=== PATIENT | female | born 1955 ===

== ENCOUNTER 2018-11-25 11:45 | Outpatient (CLI) | payer BC | END 2018-11-25 12:25 | disposition home or self-care (01) | LOC: LAB 11:45 | DX: N39.0 Urinary tract infection, site not specified (principal); E55.9 Vitamin D deficiency, unspecified; Z13.89 Encounter for screening for other disorder; K77 Liver disorders in diseases classified elsewhere; Z13.29 Encounter for screening for other suspected endocrine disorder; E03.8 Other specified hypothyroidism; E78.2 Mixed hyperlipidemia; N08 Glomerular disorders in diseases classified elsewhere; Z13.1 Encounter for screening for diabetes mellitus; E11.65 Type 2 diabetes mellitus with hyperglycemia; Z12.11 Encounter for screening for malignant neoplasm of colon; B96.89 Other specified bacterial agents as the cause of diseases classified elsewhere; D63.8 Anemia in other chronic diseases classified elsewhere ==

== ENCOUNTER 2018-11-30 09:42 | Outpatient (CLI) | payer BC | END 2018-11-30 10:00 | disposition home or self-care (01) | LOC: LAB 09:42 | DX: N39.0 Urinary tract infection, site not specified (principal); D63.8 Anemia in other chronic diseases classified elsewhere; Z13.89 Encounter for screening for other disorder; E55.9 Vitamin D deficiency, unspecified; K77 Liver disorders in diseases classified elsewhere; Z13.29 Encounter for screening for other suspected endocrine disorder; E03.8 Other specified hypothyroidism; N08 Glomerular disorders in diseases classified elsewhere; E11.65 Type 2 diabetes mellitus with hyperglycemia; Z12.11 Encounter for screening for malignant neoplasm of colon ==

== ENCOUNTER 2019-01-04 13:09 | Outpatient (CLI) | payer BC | END 2019-01-04 13:57 | disposition home or self-care (01) | LOC: LAB 13:09 | DX: N39.0 Urinary tract infection, site not specified (principal); M19.90 Unspecified osteoarthritis, unspecified site; R10.13 Epigastric pain; K21.9 Gastro-esophageal reflux disease without esophagitis; Z12.11 Encounter for screening for malignant neoplasm of colon; R74.0 Nonspecific elevation of levels of transaminase and lactic acid dehydrogenase [LDH]; D64.89 Other specified anemias; Z13.89 Encounter for screening for other disorder; K77 Liver disorders in diseases classified elsewhere ==